=== PATIENT | female | born 1980 | race Caucasian/White ===

== ENCOUNTER 2021-07-05 16:53 | Inpatient (IN) | payer MEDICAID, OTHER ==
[~2021-07-05] VITALS: Ht 160 cm; Wt 37.0 kg
[2021-07-05] MEDS ORDERED: SODIUM CHLORIDE 0.9% 1,000 ML IV ONE (20:45)
[2021-07-05] MEDS ORDERED: MIDAZOLAM HCL 2MG/2ML 2ml VIAL (1mg/ml) IV ONE (20:45)
[2021-07-05] MEDS ORDERED: ONDANSETRON HCL 4 MG/2 ML VIAL IV ONE (21:00)
[2021-07-05] MEDS ORDERED: SODIUM CHLORIDE 0.9% 1,000 ML IVB ONE (21:00)
[2021-07-05] MEDS ORDERED: IOHEXOL 300 MG/ML 100ML BOTTLE IJ ONE (21:41)
[2021-07-05] MEDS ORDERED: LORazepam 2MG/ML-1ML VIAL IV ONE (22:00)
[2021-07-06 00:31] LABS: Basophils # (auto) 0 10 ^3/uL (0-0.2); Eosinophils # (auto) 0.1 10 ^3/uL (0-0.8); Lymphocytes # (auto) 1.7 10 ^3/uL (0.4-5.4); Monocytes # (auto) 0.2 10 ^3/uL (0-1.3); Nucleated Red Blood Cells % 0.1 %; Red Cell Distribution Width 14.7 % (11.8-14.3); White Blood Cell 3.1 10^3/uL (4.4-10.8)
[2021-07-06 00:33] LABS: Hematocrit 37.1 % (36.0-46.0); Hemoglobin 12.7 g/dL (12.2-16.2); Lymphocytes % (auto) 53.4 % (10.0-50.0); Mean Corpuscular Hemoglobin 35.1 pg (28.0-32.0); Mean Corpuscular Hgb Conc. 34.3 g/dL (32.0-36.0); Mean Corpuscular Volume 102.3 fL (80.0-100.0); Monocytes % (auto) 6.7 % (0.0-12.0); Neutrophils # (auto) 1.2 10 ^3/uL (1.6-8.6); Neutrophils % (auto) 36.9 % (37.0-80.0); Red Blood Cells 3.63 10^6/uL (4.0-5.20)
[2021-07-06] MEDS ORDERED: SODIUM CHLORIDE 0.9% 1,000 ML IV ONE (01:25)
[2021-07-06] MEDS ORDERED: HYDROCORTISONE SOD SUCC 100 MG/2ML INJ VIAL IV ONE (01:25)
[2021-07-06 01:30] LABS: Albumin 2.8 g/dL (3.4-5.0); BUN/Creatinine Ratio 20.8; Calcium 8.1 mg/dL (8.5-10.1); Potassium 3.4 mmol/L (3.5-5.1)
[2021-07-06 01:33] LABS: Bilirubin, Total 0.7 mg/dL (0.2-1.0); Total Protein 5.5 g/dL (6.4-8.2)
[2021-07-06] MEDS ORDERED: ONDANSETRON HCL 4 MG/2 ML VIAL IV ONE (03:30)
[2021-07-06] MEDS ORDERED: POTASSIUM CHL 20MEQ/50ML 50 ML IV ONE (06:00)
[2021-07-06] MEDS ORDERED: LORazepam 2MG/ML-1ML VIAL IV PRN (06:00)
[2021-07-06] MEDS ORDERED: D5W/SOD CHL 0.45% 1,000 ML IV SCH (06:00)
[2021-07-06 07:38] LABS: Urine Bacteria NONE SEEN /hpf (None Seen); Urine Blood Negative /uL (Negative); Urine Specific Gravity 1.033 (1.001-1.035); Urine WBC 2 /hpf (0 - 5)
[2021-07-06] MEDS: PANTOPRAZOLE 40 MG/10 ML VIAL INJ IV SCH (09:07)
[2021-07-06] MEDS ORDERED: HALOPERIDOL LACTATE 5 MG/ML INJ VIAL IM ONE (10:45)
[2021-07-06 13:37] VITALS: BP 70/41
[2021-07-06 17:00] VITALS: BP 79/54
[2021-07-06] MEDS: ONDANSETRON HCL 4 MG/2 ML VIAL IV PRN ×2 (18:16→22:19)
[2021-07-06] MEDS ORDERED: SODIUM CHLORIDE 0.9% 250 ML IV ONE (19:00)
[2021-07-06 19:41] LABS: INR 1.07 (0.9-1.15)
[2021-07-06 22:00] VITALS: BP 106/61
[2021-07-07] MEDS: ONDANSETRON HCL 4 MG/2 ML VIAL IV PRN ×2 (02:27→21:31)
[2021-07-07 04:42] VITALS: BP 74/66
[2021-07-07 04:45] VITALS: BP 79/50
[2021-07-07 09:00] VITALS: BP 99/57
[2021-07-07] MEDS: PANTOPRAZOLE 40 MG/10 ML VIAL INJ IV SCH (10:00)
[2021-07-07] MEDS: HALOPERIDOL LACTATE 5 MG/ML INJ VIAL IM PRN (10:41)
[2021-07-07] MEDS: D5W/SOD CHLO 0.9% 1,000 ML IV SCH ×2 (10:45→17:25)
[2021-07-07 13:40] LABS: Basophils # (auto) 0.1 10 ^3/uL (0-0.2); Eosinophils # (auto) 0 10 ^3/uL (0-0.8); Lymphocytes # (auto) 0.9 10 ^3/uL (0.4-5.4); Lymphocytes % (auto) 27.8 % (10.0-50.0); Red Blood Cells 4.03 10^6/uL (4.0-5.20); Red Cell Distribution Width 14.4 % (11.8-14.3)
[2021-07-07 13:41] LABS: Hematocrit 40.8 % (36.0-46.0); Hemoglobin 13.9 g/dL (12.2-16.2); Mean Corpuscular Hemoglobin 34.5 pg (28.0-32.0); Mean Corpuscular Hgb Conc. 34.1 g/dL (32.0-36.0); Mean Corpuscular Volume 101.3 fL (80.0-100.0); Monocytes # (auto) 0.2 10 ^3/uL (0-1.3); Monocytes % (auto) 6.2 % (0.0-12.0); White Blood Cell 3.2 10^3/uL (4.4-10.8)
[2021-07-07 14:06] LABS: BUN/Creatinine Ratio 12.7; Calcium 8.4 mg/dL (8.5-10.1); Potassium 3.8 mmol/L (3.5-5.1)
[2021-07-07] MEDS ORDERED: LORazepam 2MG/ML-1ML VIAL IM ONE (15:45)
[2021-07-07 22:00] VITALS: BP 87/53
[2021-07-08] MEDS: D5W/SOD CHLO 0.9% 1,000 ML IV SCH ×4 (00:05→21:02)
[2021-07-08] MEDS: ONDANSETRON HCL 4 MG/2 ML VIAL IV PRN ×4 (03:13→18:59)
[2021-07-08 05:00] VITALS: BP 83/39
[2021-07-08 09:00] VITALS: BP 83/56
[2021-07-08] MEDS: PANTOPRAZOLE 40 MG/10 ML VIAL INJ IV SCH (10:23)
[2021-07-08 13:00] VITALS: BP 108/47
[2021-07-08 17:00] VITALS: BP 93/50
[2021-07-08 22:00] VITALS: BP 94/50
[2021-07-09] MEDS: D5W/SOD CHLO 0.9% 1,000 ML IV SCH ×2 (03:47→11:51)
[2021-07-09] MEDS: ONDANSETRON HCL 4 MG/2 ML VIAL IV PRN ×2 (04:36→16:59)
[2021-07-09 05:00] VITALS: BP 85/50
[2021-07-09] MEDS: MIDODRINE HCL 10 MG TAB PO SCH ×3 (06:00→18:00)
[2021-07-09 08:00] VITALS: BP 87/53
[2021-07-09 09:00] VITALS: BP 87/53
[2021-07-09] MEDS: PANTOPRAZOLE 40 MG/10 ML VIAL INJ IV SCH (09:52)
[2021-07-09] MEDS ORDERED: HYDROcodone-ACET 5/325MG TAB PO PRN (12:00)
[2021-07-09 13:00] VITALS: BP 90/56
[2021-07-09 17:00] VITALS: BP 111/77
[2021-07-09 20:00] VITALS: BP 84/47
[2021-07-10 04:58] VITALS: BP 96/59
[2021-07-10 07:00] LABS: Eosinophils # (auto) 0.1 10 ^3/uL (0-0.8); Lymphocytes # (auto) 1.2 10 ^3/uL (0.4-5.4); Mean Corpuscular Hemoglobin 34.2 pg (28.0-32.0); Monocytes # (auto) 0.3 10 ^3/uL (0-1.3); Nucleated Red Blood Cells % 0.2 %
[2021-07-10 07:02] LABS: Basophils # (auto) 0 10 ^3/uL (0-0.2); Basophils % (auto) 1.4 % (0.0-2.0); Eosinophils % (auto) 2.7 % (0.0-7.0); Hematocrit 41.7 % (36.0-46.0); Lymphocytes % (auto) 44.9 % (10.0-50.0); Mean Corpuscular Hgb Conc. 33.6 g/dL (32.0-36.0); Monocytes % (auto) 10.4 % (0.0-12.0); Neutrophils # (auto) 1.1 10 ^3/uL (1.6-8.6); Neutrophils % (auto) 40.6 % (37.0-80.0); Red Blood Cells 4.09 10^6/uL (4.0-5.20); Red Cell Distribution Width 14.4 % (11.8-14.3); White Blood Cell 2.6 10^3/uL (4.4-10.8)
[2021-07-10 07:14] LABS: INR 1.03 (0.9-1.15); Partial Thromboplastin Time 26.8 sec (23.6-33.0)
[2021-07-10 07:15] LABS: BUN/Creatinine Ratio 11.1; Calcium 9.1 mg/dL (8.5-10.1); Potassium 3.6 mmol/L (3.5-5.1)
[2021-07-10 08:00] VITALS: BP 125/81
[2021-07-10 09:00] VITALS: BP 125/81
[2021-07-10] MEDS ORDERED: LIDOCAINE VISCOUS 2% 15ML UD ONE (09:55)
[2021-07-10] MEDS ORDERED: SODIUM CHLORIDE LOCK 10 ML ONE (09:55)
[2021-07-10] MEDS ORDERED: MIDAZOLAM HCL 5 MG/ML-1ML VIAL ONE (09:55)
[2021-07-10] MEDS ORDERED: diphenhdrAMINE HCL 50 MG/1 ML VL ONE (09:55)
[2021-07-10] MEDS ORDERED: fentaNYL CITRATE 100 MCG/2 ML VL ONE ×2 (09:56→12:42)
[2021-07-10] MEDS: PANTOPRAZOLE 40 MG/10 ML VIAL INJ IV SCH (10:54)
[2021-07-10] MEDS: MIDODRINE HCL 10 MG TAB PO SCH ×2 (12:15→17:42)
[2021-07-10] MEDS: D5W/SOD CHLO 0.9% 1,000 ML IV SCH ×2 (12:15→17:42)
[2021-07-10] MEDS ORDERED: MIDAZOLAM HCL 2MG/2ML 2ml VIAL (1mg/ml) ONE (12:43)
[2021-07-10 13:00] VITALS: BP 124/92
[2021-07-10 17:00] VITALS: BP 92/64
[2021-07-10] MEDS: ONDANSETRON HCL 4 MG/2 ML VIAL IV PRN ×2 (17:56→22:46)
[2021-07-10] MEDS: HALOPERIDOL LACTATE 5 MG/ML INJ VIAL IM PRN (17:59)
[2021-07-11] MEDS: D5W/SOD CHLO 0.9% 1,000 ML IV SCH ×3 (01:25→14:45)
[2021-07-11] MEDS: MIDODRINE HCL 10 MG TAB PO SCH ×3 (05:39→18:00)
[2021-07-11 08:30] VITALS: BP 99/54
[2021-07-11 09:00] VITALS: BP 99/54
[2021-07-11] MEDS: PANTOPRAZOLE 40 MG/10 ML VIAL INJ IV SCH (10:29)
[2021-07-11 13:00] VITALS: BP 94/61
[2021-07-11 16:59] VITALS: BP 100/65
[2021-07-11 17:47] VITALS: BP 100/65
[2021-07-11] MEDS: HALOPERIDOL LACTATE 5 MG/ML INJ VIAL IM PRN (18:18)
== END 2021-07-11 18:30 | disposition home or self-care (01) | DRG 252 ==
LOC: ER 16:53 → EDBD 16:53 → OVERFLOW 07-06 06:03 → CENTRAL 07-06 13:10
PROVIDERS: ADMIT Nurse Practitioner; ATTEND Family Medicine
PROC: 0DP68UZ Removal of Feeding Device from Stomach, Via Natural or Artificial Opening Endoscopic (ICD-10-PCS; 2021-07-10)
PROC: 0DH63UZ Insertion of Feeding Device into Stomach, Percutaneous Approach (ICD-10-PCS; principal; 2021-07-10 12:42)
DX: K94.23 Gastrostomy malfunction (principal); E43 Unspecified severe protein-calorie malnutrition; E87.6 Hypokalemia; Q90.9 Down syndrome, unspecified; K59.00 Constipation, unspecified; K29.70 Gastritis, unspecified, without bleeding; Z20.822 Contact with and (suspected) exposure to COVID-19; Y83.3 Surgical operation with formation of external stoma as the cause of abnormal reaction of the patient, or of later complication, without mention of misadventure at the time of the procedure; Z68.1 Body mass index [BMI] 19.9 or less, adult; Y92.89 Other specified places as the place of occurrence of the external cause
CPT/HCPCS: 36415; 71045; 74177; 80048; 80053; 81001; 83605; 83690; 84702; 85025; 85610; 85730; 86850; 86900; 86901; 87426; 93005; 96361; 96374; 96375; C9113; G0378; J2250; J2405; J7042

== ENCOUNTER 2021-08-01 08:46 | Inpatient (IN) | payer MEDICAID ==
[~2021-08-01] VITALS: Ht 152.4 cm; Wt 38.1 kg
[2021-08-01] MEDS ORDERED: diphenhdrAMINE HCL 50 MG/1 ML VL IV ONE ×2 (10:00→14:45)
[2021-08-01] MEDS ORDERED: LORazepam 2MG/ML-1ML VIAL IV ONE ×2 (10:00→14:45)
[2021-08-01 10:38] LABS: Basophils # (auto) 0 10 ^3/uL (0-0.2); Eosinophils # (auto) 0.1 10 ^3/uL (0-0.8); Eosinophils % (auto) 1.6 % (0.0-7.0); Lymphocytes # (auto) 1.3 10 ^3/uL (0.4-5.4); Mean Corpuscular Hemoglobin 34.1 pg (28.0-32.0); Monocytes # (auto) 0.2 10 ^3/uL (0-1.3); White Blood Cell 4.3 10^3/uL (4.4-10.8)
[2021-08-01 10:40] LABS: Basophils % (auto) 0.6 % (0.0-2.0); Hematocrit 36.8 % (36.0-46.0); Hemoglobin 12.4 g/dL (12.2-16.2); Lymphocytes % (auto) 31.3 % (10.0-50.0); Mean Corpuscular Hgb Conc. 33.7 g/dL (32.0-36.0); Mean Corpuscular Volume 101.2 fL (80.0-100.0); Monocytes % (auto) 4.6 % (0.0-12.0); Neutrophils # (auto) 2.6 10 ^3/uL (1.6-8.6); Neutrophils % (auto) 61.9 % (37.0-80.0); Nucleated Red Blood Cells % 0.1 %; Red Blood Cells 3.64 10^6/uL (4.0-5.20); Red Cell Distribution Width 14.3 % (11.8-14.3)
[2021-08-01 10:53] LABS: Potassium 3.7 mmol/L (3.5-5.1)
[2021-08-01 11:08] LABS: Albumin 3.4 g/dL (3.4-5.0); BUN/Creatinine Ratio 21.4; Bilirubin, Total 0.3 mg/dL (0.2-1.0); Calcium 9.2 mg/dL (8.5-10.1); Total Protein 6.9 g/dL (6.4-8.2)
[2021-08-01 11:28] LABS: INR 0.99 (0.9-1.15); Partial Thromboplastin Time 29.9 sec (23.6-33.0)
[2021-08-01] MEDS ORDERED: NITROGLYCERIN 0.4 MG SL TAB SL PRN ×2 (13:15→14:00)
[2021-08-01] MEDS ORDERED: MORPHINE SULFATE INJECTION 2 MG/ML SYRG IV PRN ×3 (13:15→14:00)
[2021-08-01] MEDS ORDERED: DOCUSATE SOD 100 MG CAP PO PRN (14:00)
[2021-08-01] MEDS ORDERED: ALUM & MAG HYDROX-SIMETH LIQ(MAALOX) 30 ML PO PRN (14:00)
[2021-08-01] MEDS ORDERED: TEMAZEPAM 15 MG CAP PO PRN (14:00)
[2021-08-01] MEDS ORDERED: metroNIDAZOLE 500MG/100ML 100 ML IV ONE (14:00)
[2021-08-01] MEDS ORDERED: HYDROcodone-ACET 5/325MG TAB PO PRN (14:00)
[2021-08-01] MEDS ORDERED: ACETAMINOPHEN 325 MG TAB PO PRN (14:00)
[2021-08-01] MEDS ORDERED: cefTRIAXone 1GM/50ML D5W 50 ML IV ONE (14:00)
[2021-08-01] MEDS ORDERED: PANTOPRAZOLE 40 MG/10 ML VIAL INJ IV ONE (14:00)
[2021-08-01 14:26] LABS: % Iron Saturation 21.9 % (15-50)
[2021-08-01 14:40] LABS: Cholesterol 153 mg/dL (< 200); Triglycerides 67 mg/dL (< 150)
[2021-08-01 14:43] LABS: HDL Cholesterol 55 mg/dL (40-59); LDL Cholesterol 79 mg/dL (< 100)
[2021-08-01 14:44] LABS: Folate (Folic Acid) 9.42 ng/mL (5.38-24)
[2021-08-01] MEDS: metroNIDAZOLE 500MG/100ML 100 ML IV SCH ×2 (14:48→21:38)
[2021-08-01] MEDS: METOCLOPRAMIDE HCL 5MG/ml INJ 2ml VIAL IV PRN (17:56)
[2021-08-01] MEDS: D5W/SOD CHLO 0.9% 1,000 ML IV SCH (18:01)
[2021-08-01] MEDS: NYSTATIN TOPICAL POWDER 15GM TOP SCH (21:50)
[2021-08-02] MEDS: D5W/SOD CHLO 0.9% 1,000 ML IV SCH ×2 (03:20→22:26)
[2021-08-02] MEDS: metroNIDAZOLE 500MG/100ML 100 ML IV SCH (05:56)
[2021-08-02] MEDS: METOCLOPRAMIDE HCL 5MG/ml INJ 2ml VIAL IV PRN (06:50)
[2021-08-02 07:38] LABS: Basophils # (auto) 0.1 10 ^3/uL (0-0.2); Basophils % (auto) 3.2 % (0.0-2.0); Eosinophils # (auto) 0.1 10 ^3/uL (0-0.8); Eosinophils % (auto) 3.3 % (0.0-7.0); Hematocrit 36.4 % (36.0-46.0); Hemoglobin 12.2 g/dL (12.2-16.2); Lymphocytes # (auto) 1.1 10 ^3/uL (0.4-5.4); Lymphocytes % (auto) 47.4 % (10.0-50.0); Mean Corpuscular Hemoglobin 34.2 pg (28.0-32.0); Mean Corpuscular Hgb Conc. 33.5 g/dL (32.0-36.0); Mean Corpuscular Volume 102.3 fL (80.0-100.0); Monocytes # (auto) 0.2 10 ^3/uL (0-1.3); Neutrophils # (auto) 0.9 10 ^3/uL (1.6-8.6); Neutrophils % (auto) 39.1 % (37.0-80.0); Nucleated Red Blood Cells % 0.1 %; Red Blood Cells 3.55 10^6/uL (4.0-5.20); Red Cell Distribution Width 14.5 % (11.8-14.3); White Blood Cell 2.4 10^3/uL (4.4-10.8)
[2021-08-02 07:41] LABS: INR 1.07 (0.9-1.15); Partial Thromboplastin Time 30.3 sec (23.6-33.0)
[2021-08-02 07:47] LABS: Potassium 3.8 mmol/L (3.5-5.1)
[2021-08-02 08:11] LABS: Albumin 3.1 g/dL (3.4-5.0); Bilirubin, Total 0.6 mg/dL (0.2-1.0); Calcium 8.9 mg/dL (8.5-10.1); Magnesium 3.6 mg/dL (1.6-2.6); Phosphorus 3.5 mg/dL (2.5-4.90); Total Protein 6.5 g/dL (6.4-8.2); Uric Acid 3.4 mg/dL (2.6-6.0)
[2021-08-02] MEDS: ENOXAPARIN SOD 30 MG/0.3 ML SYRINGE SC SCH (08:13)
[2021-08-02] MEDS: PANTOPRAZOLE 40 MG/10 ML VIAL INJ IV SCH (08:13)
[2021-08-02] MEDS: cefTRIAXone 1GM/50ML D5W 50 ML IV SCH (08:13)
[2021-08-02] MEDS: NYSTATIN TOPICAL POWDER 15GM TOP SCH ×2 (10:00→22:00)
[2021-08-02 13:00] VITALS: BP 102/73
[2021-08-02 17:00] VITALS: BP 103/69
[2021-08-02 20:00] VITALS: BP 113/77
[2021-08-03] MEDS: D5W/SOD CHLO 0.9% 1,000 ML IV SCH (06:00)
[2021-08-03 07:30] LABS: Urine Bacteria FEW /hpf (None Seen); Urine Blood Negative /uL (Negative); Urine Mucus FEW (None Seen); Urine Specific Gravity 1.011 (1.001-1.035); Urine WBC 3 /hpf (0 - 5)
[2021-08-03 07:36] LABS: Amphetamine Screen, Urine NEGATIVE (NEGATIVE); Barbiturate Scree,Urine NEGATIVE (NEGATIVE); Benzodiazephine Screen, Urine NEGATIVE (NEGATIVE); Cannabinoid Screen, Urine NEGATIVE (NEGATIVE); Cocaine Screen, Urine NEGATIVE (NEGATIVE); Opiate Scree,Urine NEGATIVE (NEGATIVE); Phencyclidine Screen, Urine NEGATIVE (NEGATIVE)
[2021-08-03 09:00] VITALS: BP 134/87
[2021-08-03] MEDS: cefTRIAXone 1GM/50ML D5W 50 ML IV SCH (09:30)
[2021-08-03] MEDS: PANTOPRAZOLE 40 MG/10 ML VIAL INJ IV SCH (10:00)
[2021-08-03] MEDS: NYSTATIN TOPICAL POWDER 15GM TOP SCH ×2 (10:00→22:00)
[2021-08-03] MEDS: ENOXAPARIN SOD 30 MG/0.3 ML SYRINGE SC SCH (10:00)
[2021-08-03 13:00] VITALS: BP 109/78
[2021-08-03] MEDS ORDERED: CLINIMIX PER PHARMACY 0 ML IV SCH (13:15)
[2021-08-03] MEDS: HALOPERIDOL LACTATE 5 MG/ML INJ VIAL IM PRN (14:26)
[2021-08-03 15:50] LABS: Albumin 3.4 g/dL (3.4-5.0); Magnesium 3.3 mg/dL (1.6-2.6); Potassium 3.9 mmol/L (3.5-5.1)
[2021-08-03 15:56] LABS: BUN/Creatinine Ratio 12.9; Bilirubin, Total 0.7 mg/dL (0.2-1.0); Phosphorus 3.1 mg/dL (2.5-4.90); Pre Albumin 16.3 mg/dL (20.0-40.0); Total Protein 6.7 g/dL (6.4-8.2)
[2021-08-03 17:36] VITALS: BP 99/69
[2021-08-03] MEDS ORDERED: ceFAZolin 1GM/50ML 50 ML IV ONE (19:30)
[2021-08-03] MEDS: AMINO ACID INFUSION IN D10W 1,000 ML IV SCH (23:56)
[2021-08-04] MEDS ORDERED: DEXTROSE (50%) 50ML SYRG IV SCH
[2021-08-04] MEDS: LORazepam 2MG/ML-1ML VIAL IV PRN ×2 (00:42→16:24)
[2021-08-04] MEDS: InsuLIN REG 1unit/0.01ml Soln (100units/ml) SC SCH ×4 (06:00→17:48)
[2021-08-04] MEDS: ACCU-CHEK COMFORT CURVE STRIP VI SCH ×4 (06:07→17:48)
[2021-08-04 06:21] VITALS: BP 98/63
[2021-08-04 07:30] LABS: Basophils # (auto) 0.1 10 ^3/uL (0-0.2); Basophils % (auto) 2.3 % (0.0-2.0); Eosinophils # (auto) 0 10 ^3/uL (0-0.8); Eosinophils % (auto) 1.2 % (0.0-7.0); Hemoglobin 11.9 g/dL (12.2-16.2); Lymphocytes # (auto) 1.5 10 ^3/uL (0.4-5.4); Mean Corpuscular Hemoglobin 34.3 pg (28.0-32.0); Monocytes # (auto) 0.2 10 ^3/uL (0-1.3); Nucleated Red Blood Cells % 0.1 %; Red Blood Cells 3.46 10^6/uL (4.0-5.20); Red Cell Distribution Width 14.6 % (11.8-14.3)
[2021-08-04 07:36] LABS: Hematocrit 35.2 % (36.0-46.0); Lymphocytes % (auto) 43.4 % (10.0-50.0); Mean Corpuscular Hgb Conc. 33.8 g/dL (32.0-36.0); Mean Corpuscular Volume 101.6 fL (80.0-100.0); Monocytes % (auto) 6.9 % (0.0-12.0); Neutrophils # (auto) 1.6 10 ^3/uL (1.6-8.6); Neutrophils % (auto) 46.2 % (37.0-80.0); White Blood Cell 3.4 10^3/uL (4.4-10.8)
[2021-08-04 07:38] LABS: INR 1.08 (0.9-1.15); Partial Thromboplastin Time 25.5 sec (23.6-33.0)
[2021-08-04 07:47] LABS: Potassium 3.5 mmol/L (3.5-5.1)
[2021-08-04 07:53] LABS: Albumin 3.1 g/dL (3.4-5.0); BUN/Creatinine Ratio 17.2; Bilirubin, Total 0.7 mg/dL (0.2-1.0); Calcium 9.1 mg/dL (8.5-10.1); Magnesium 3.6 mg/dL (1.6-2.6); Phosphorus 3.3 mg/dL (2.5-4.90); Total Protein 6.2 g/dL (6.4-8.2)
[2021-08-04 10:00] VITALS: BP 97/79
[2021-08-04] MEDS: ENOXAPARIN SOD 30 MG/0.3 ML SYRINGE SC SCH (10:00)
[2021-08-04] MEDS: PANTOPRAZOLE 40 MG/10 ML VIAL INJ IV SCH (10:04)
[2021-08-04] MEDS: cefTRIAXone 1GM/50ML D5W 50 ML IV SCH (10:04)
[2021-08-04] MEDS: NYSTATIN TOPICAL POWDER 15GM TOP SCH ×2 (10:05→22:00)
[2021-08-04 12:30] VITALS: BP 95/57
[2021-08-04] MEDS ORDERED: ceFAZolin 1GM/50ML 50 ML IV ONE (17:30)
[2021-08-04] MEDS: D5W/SOD CHLO 0.9% 1,000 ML IV SCH ×2 (20:00→21:43)
[2021-08-04] MEDS: HALOPERIDOL LACTATE 5 MG/ML INJ VIAL IM PRN (21:14)
[2021-08-04 22:00] VITALS: BP 99/69
[2021-08-05] MEDS: AMINO ACID INFUSION IN D10W 1,000 ML IV SCH ×2 (00:03→20:48)
[2021-08-05 05:00] VITALS: BP 100/58
[2021-08-05] MEDS: InsuLIN REG 1unit/0.01ml Soln (100units/ml) SC SCH ×4 (06:00→18:00)
[2021-08-05] MEDS: ACCU-CHEK COMFORT CURVE STRIP VI SCH ×4 (06:05→18:00)
[2021-08-05 09:00] VITALS: BP 103/66
[2021-08-05] MEDS: ENOXAPARIN SOD 30 MG/0.3 ML SYRINGE SC SCH (10:00)
[2021-08-05] MEDS: NYSTATIN TOPICAL POWDER 15GM TOP SCH ×2 (10:00→22:00)
[2021-08-05] MEDS: PANTOPRAZOLE 40 MG/10 ML VIAL INJ IV SCH (10:00)
[2021-08-05] MEDS: HALOPERIDOL LACTATE 5 MG/ML INJ VIAL IM PRN (11:30)
[2021-08-05] MEDS: cefTRIAXone 1GM/50ML D5W 50 ML IV SCH (12:05)
[2021-08-05] MEDS: LORazepam 2MG/ML-1ML VIAL IV PRN ×2 (12:07→23:41)
[2021-08-05] MEDS ORDERED: ceFAZolin 1GM/50ML 50 ML IV ONE (12:30)
[2021-08-05 12:41] LABS: Potassium 3.7 mmol/L (3.5-5.1)
[2021-08-05 12:42] LABS: Albumin 3.4 g/dL (3.4-5.0); Calcium 8.8 mg/dL (8.5-10.1)
[2021-08-05 12:45] LABS: BUN/Creatinine Ratio 23.9; Bilirubin, Total 0.4 mg/dL (0.2-1.0); Phosphorus 2.6 mg/dL (2.5-4.90); Total Protein 7.1 g/dL (6.4-8.2)
[2021-08-05 13:00] VITALS: BP 102/66
[2021-08-05] MEDS ORDERED: fentaNYL CITRATE 100 MCG/2 ML VL ONE (14:29)
[2021-08-05] MEDS ORDERED: ONDANSETRON HCL 4 MG/2 ML VIAL ONE (14:32)
[2021-08-05] MEDS ORDERED: PROPOFOL 10 MG/ML 20 ML IV ONE (14:50)
[2021-08-05] MEDS ORDERED: POVIDONE IODINE 10 % TOPICAL OINT 30GM TOP ONE (14:53)
[2021-08-05] MEDS ORDERED: MORPHINE SULFATE 4 MG/ML SYR/VIAL IV PRN (15:15)
[2021-08-05] MEDS ORDERED: ONDANSETRON HCL 4 MG/2 ML VIAL IV PRN (15:15)
[2021-08-05] MEDS ORDERED: POTASSIUM PHOSPHATE 22 MEQ in SODIUM CHL 0.9% 100 ML IV ONE (16:00)
[2021-08-05 17:00] VITALS: BP 94/50
[2021-08-05 20:00] VITALS: BP 100/60
[2021-08-05] MEDS: D5W/SOD CHLO 0.9% 1,000 ML IV SCH (20:00)
[2021-08-05] MEDS: METOCLOPRAMIDE HCL 5MG/ml INJ 2ml VIAL IV SCH (22:00)
[2021-08-06] MEDS: METOCLOPRAMIDE HCL 5MG/ml INJ 2ml VIAL IV SCH ×3 (06:00→22:00)
[2021-08-06] MEDS: ACCU-CHEK COMFORT CURVE STRIP VI SCH ×3 (06:00→17:32)
[2021-08-06] MEDS: InsuLIN REG 1unit/0.01ml Soln (100units/ml) SC SCH ×4 (06:00→17:32)
[2021-08-06 09:00] VITALS: BP 107/60
[2021-08-06] MEDS: cefTRIAXone 1GM/50ML D5W 50 ML IV SCH (09:14)
[2021-08-06] MEDS: ONDANSETRON HCL 4 MG/2 ML VIAL IV PRN ×2 (09:18→20:14)
[2021-08-06 09:34] LABS: Potassium 4.1 mmol/L (3.5-5.1)
[2021-08-06] MEDS: ENOXAPARIN SOD 30 MG/0.3 ML SYRINGE SC SCH (09:41)
[2021-08-06] MEDS: NYSTATIN TOPICAL POWDER 15GM TOP SCH ×2 (09:41→22:00)
[2021-08-06] MEDS: PANTOPRAZOLE 40 MG/10 ML VIAL INJ IV SCH (09:41)
[2021-08-06 09:45] LABS: Albumin 2.8 g/dL (3.4-5.0); BUN/Creatinine Ratio 35.7; Bilirubin, Total 0.4 mg/dL (0.2-1.0); Calcium 8.4 mg/dL (8.5-10.1); Total Protein 6.1 g/dL (6.4-8.2)
[2021-08-06] MEDS ORDERED: BISACODYL 10 MG RECT SUPP PR ONE (15:15)
[2021-08-06] MEDS: LORazepam 2MG/ML-1ML VIAL IV PRN ×2 (15:22→21:25)
[2021-08-06 17:00] VITALS: BP 94/64
[2021-08-06] MEDS: Glucerna Carbsteady SHAKE Stawberry 8oz GT SCH ×2 (18:32→22:00)
[2021-08-06 20:00] VITALS: BP 106/60
[2021-08-06 22:00] VITALS: BP 98/57
[2021-08-06] MEDS: D5W/SOD CHLO 0.9% 1,000 ML IV SCH (23:15)
[2021-08-07] MEDS: D5W/SOD CHLO 0.9% 1,000 ML IV SCH (00:58)
[2021-08-07 05:00] VITALS: BP 100/58
[2021-08-07] MEDS: InsuLIN REG 1unit/0.01ml Soln (100units/ml) SC SCH ×3 (06:00→13:12)
[2021-08-07] MEDS: Glucerna Carbsteady SHAKE Stawberry 8oz GT SCH (06:00)
[2021-08-07] MEDS: ACCU-CHEK COMFORT CURVE STRIP VI SCH ×2 (06:00)
[2021-08-07] MEDS: METOCLOPRAMIDE HCL 5MG/ml INJ 2ml VIAL IV SCH (06:00)
[2021-08-07 09:15] VITALS: BP 136/82
[2021-08-07] MEDS ORDERED: METO-281 PO (09:41)
[2021-08-07] MEDS: PANTOPRAZOLE 40 MG/10 ML VIAL INJ IV SCH (11:02)
[2021-08-07] MEDS: cefTRIAXone 1GM/50ML D5W 50 ML IV SCH (11:02)
[2021-08-07] MEDS: ENOXAPARIN SOD 30 MG/0.3 ML SYRINGE SC SCH (11:03)
[2021-08-07] MEDS: NYSTATIN TOPICAL POWDER 15GM TOP SCH (11:16)
[2021-08-07 13:00] VITALS: BP 102/56
[2021-08-07 16:13] VITALS: BP 109/59
[2021-08-07 16:16] VITALS: BP 109/59
== END 2021-08-07 19:10 | disposition home or self-care (01) | DRG 813 ==
LOC: EDBD 08:46 → ER 08:46 → TELE 13:59 → CENTRAL 15:58 → EAST 17:25
PROVIDERS: ADMIT Hospitalist; ATTEND Internal Medicine
PROC: 0DH63UZ Insertion of Feeding Device into Stomach, Percutaneous Approach (ICD-10-PCS; 2021-08-05)
PROC: 0DP68UZ Removal of Feeding Device from Stomach, Via Natural or Artificial Opening Endoscopic (ICD-10-PCS; principal; 2021-08-05 14:29)
DX: T85.528A Displacement of other gastrointestinal prosthetic devices, implants and grafts, initial encounter (principal); E44.0 Moderate protein-calorie malnutrition; K94.22 Gastrostomy infection; L03.311 Cellulitis of abdominal wall; D53.9 Nutritional anemia, unspecified; K31.84 Gastroparesis; Y83.3 Surgical operation with formation of external stoma as the cause of abnormal reaction of the patient, or of later complication, without mention of misadventure at the time of the procedure; E86.0 Dehydration; R62.7 Adult failure to thrive; Z20.822 Contact with and (suspected) exposure to COVID-19; Z68.23 Body mass index [BMI] 23.0-23.9, adult; Q90.9 Down syndrome, unspecified; Y92.89 Other specified places as the place of occurrence of the external cause
CPT/HCPCS: 36415; 80053; 80061; 80307; 81001; 82040; 82607; 82746; 82962; 83036; 83540; 83550; 83735; 83880; 84100; 84443; 84478; 84484; 84550; 84702; 85025; 85379; 85610; 85730; 86850; 86900; 86901; 87040; 87086; 87426; 96374; 96375; C9113; G0378; J0690; J0696; J2405; J2704; J3490; J7042

== ENCOUNTER 2021-08-17 12:14 | Inpatient (IN) | payer MEDICAID ==
[~2021-08-17] VITALS: Ht 152.4 cm; Wt 28.2 kg
[~2021-08-17 12:14] MED LIST: METO-281 PO
[2021-08-17] MEDS ORDERED: LIDOCAINE HCL 2% TOP JELLY 5ML TOP ONE (13:30)
[2021-08-17] MEDS ORDERED: MORPHINE SULFATE INJECTION 2 MG/ML SYRG IV ONE (16:30)
[2021-08-17] MEDS ORDERED: ONDANSETRON HCL 4 MG/2 ML VIAL IV ONE (16:30)
[2021-08-17] MEDS ORDERED: diphenhdrAMINE HCL 50 MG/1 ML VL ONE (16:57)
[2021-08-17] MEDS ORDERED: diphenhdrAMINE HCL 50 MG/1 ML VL IV PRN (17:00)
[2021-08-17] MEDS ORDERED: diphenhdrAMINE HCL 50 MG/1 ML VL IV ONE (17:15)
[2021-08-17] MEDS ORDERED: SODIUM CHLORIDE 0.9% 500 ML IV ONE (17:15)
[2021-08-17] MEDS ORDERED: ACETAMINOPHEN 325 MG TAB PO PRN (21:00)
[2021-08-17] MEDS: SODIUM CHLORIDE 0.9% 1,000 ML IV SCH (21:00)
[2021-08-17] MEDS ORDERED: ONDANSETRON HCL 4 MG/2 ML VIAL IV PRN (21:00)
[2021-08-17 21:24] LABS: Eosinophils # (auto) 0.1 10 ^3/uL (0-0.8); Hemoglobin 11.2 g/dL (12.2-16.2); Mean Corpuscular Hemoglobin 35.2 pg (28.0-32.0); Monocytes # (auto) 0.3 10 ^3/uL (0-1.3); Red Blood Cells 3.18 10^6/uL (4.0-5.20); White Blood Cell 3.8 10^3/uL (4.4-10.8)
[2021-08-17 21:27] LABS: Basophils # (auto) 0.1 10 ^3/uL (0-0.2); Basophils % (auto) 2.7 % (0.0-2.0); Lymphocytes # (auto) 1.5 10 ^3/uL (0.4-5.4); Lymphocytes % (auto) 40.4 % (10.0-50.0); Mean Corpuscular Hgb Conc. 34.9 g/dL (32.0-36.0); Mean Corpuscular Volume 100.9 fL (80.0-100.0); Monocytes % (auto) 8.2 % (0.0-12.0); Neutrophils # (auto) 1.8 10 ^3/uL (1.6-8.6); Neutrophils % (auto) 46.7 % (37.0-80.0); Nucleated Red Blood Cells % 0.2 %
[2021-08-17 21:36] LABS: INR 1.02 (0.9-1.15)
[2021-08-17 21:44] LABS: BUN/Creatinine Ratio 14.3; Calcium 8.8 mg/dL (8.5-10.1); Potassium 3.8 mmol/L (3.5-5.1)
[2021-08-17 21:47] LABS: Bilirubin, Total 0.7 mg/dL (0.2-1.0); Total Protein 6.5 g/dL (6.4-8.2)
[2021-08-17 23:45] VITALS: BP 95/55
[2021-08-18 05:08] VITALS: BP 87/48
[2021-08-18] MEDS ORDERED: METOCLOPRAMIDE HCL 10 MG TAB PO SCH (06:00)
[2021-08-18] MEDS: SODIUM CHLORIDE 0.9% 1,000 ML IV SCH ×3 (06:20→23:39)
[2021-08-18 06:30] LABS: Potassium 3.7 mmol/L (3.5-5.1)
[2021-08-18 06:31] LABS: Basophils # (auto) 0.1 10 ^3/uL (0-0.2); Eosinophils # (auto) 0.1 10 ^3/uL (0-0.8); Hemoglobin 10.6 g/dL (12.2-16.2); Lymphocytes # (auto) 1.3 10 ^3/uL (0.4-5.4); Nucleated Red Blood Cells % 0.4 %
[2021-08-18 06:33] LABS: Albumin 2.5 g/dL (3.4-5.0); BUN/Creatinine Ratio 18.8; Calcium 8.2 mg/dL (8.5-10.1)
[2021-08-18 06:34] LABS: Basophils % (auto) 2.5 % (0.0-2.0); Eosinophils % (auto) 3.4 % (0.0-7.0); Hematocrit 31.5 % (36.0-46.0); Lymphocytes % (auto) 42.5 % (10.0-50.0); Mean Corpuscular Hemoglobin 34.4 pg (28.0-32.0); Mean Corpuscular Hgb Conc. 33.6 g/dL (32.0-36.0); Mean Corpuscular Volume 102.1 fL (80.0-100.0); Monocytes # (auto) 0.3 10 ^3/uL (0-1.3); Monocytes % (auto) 8.4 % (0.0-12.0); Neutrophils # (auto) 1.3 10 ^3/uL (1.6-8.6); Neutrophils % (auto) 43.2 % (37.0-80.0); Red Blood Cells 3.09 10^6/uL (4.0-5.20); Red Cell Distribution Width 14.7 % (11.8-14.3); White Blood Cell 3.1 10^3/uL (4.4-10.8)
[2021-08-18 06:40] LABS: Bilirubin, Total 0.9 mg/dL (0.2-1.0); Total Protein 5.4 g/dL (6.4-8.2)
[2021-08-18 07:15] VITALS: BP 95/55
[2021-08-18] MEDS ORDERED: FAMOTIDINE 20 MG TAB PO SCH (10:00)
[2021-08-18] MEDS ORDERED: ENOXAPARIN SOD 40 MG/0.4 ML SYRINGE SC SCH (10:00)
[2021-08-18] MEDS: FAMOTIDINE (10MG/ML) 2ML VL IV SCH (10:14)
[2021-08-18] MEDS ORDERED: PROPOFOL 10 MG/ML 20 ML IV ONE (15:12)
[2021-08-18] MEDS ORDERED: ceFAZolin 1GM VL ONE (17:48)
[2021-08-18] MEDS ORDERED: IOHEXOL 300 MG/ML 100ML BOTTLE IJ ONE (18:13)
[2021-08-18] MEDS ORDERED: GASTROGRAFIN 30 ML SOL ONE (18:14)
[2021-08-18] MEDS: MORPHINE SULFATE 4 MG/ML SYR/VIAL IV PRN ×2 (19:06→23:38)
[2021-08-18] MEDS: Ensure Enlive Vanilla 8oz Bottle PO SCH ×2 (19:07→22:00)
[2021-08-18 19:20] VITALS: BP 96/48
[2021-08-18 20:00] VITALS: BP 123/77
[2021-08-18 22:00] VITALS: BP 104/63
[2021-08-18] MEDS: METOCLOPRAMIDE HCL 5MG/ml INJ 2ml VIAL IV SCH (23:39)
[2021-08-19] MEDS: METOCLOPRAMIDE HCL 5MG/ml INJ 2ml VIAL IV SCH ×3 (06:54→21:17)
[2021-08-19] MEDS: SODIUM CHLORIDE 0.9% 1,000 ML IV SCH (06:55)
[2021-08-19] MEDS: Ensure Enlive Vanilla 8oz Bottle PO SCH ×4 (08:00→22:00)
[2021-08-19 09:00] VITALS: BP 102/63
[2021-08-19] MEDS: ENOXAPARIN SOD 30 MG/0.3 ML SYRINGE SC SCH (11:05)
[2021-08-19] MEDS: MILK OF MAGNESIA 30ML SUSP PO SCH (11:05)
[2021-08-19] MEDS: FAMOTIDINE (10MG/ML) 2ML VL IV SCH (11:05)
[2021-08-19] MEDS: MORPHINE SULFATE 4 MG/ML SYR/VIAL IV PRN (11:07)
[2021-08-19 16:30] VITALS: BP 101/66
[2021-08-20] MEDS: METOCLOPRAMIDE HCL 5MG/ml INJ 2ml VIAL IV SCH ×3 (06:00→22:00)
[2021-08-20] MEDS: Ensure Enlive Vanilla 8oz Bottle PO SCH ×4 (08:00→22:00)
[2021-08-20] MEDS: MILK OF MAGNESIA 30ML SUSP PO SCH (08:07)
[2021-08-20 08:30] VITALS: BP 126/70
[2021-08-20] MEDS: FAMOTIDINE (10MG/ML) 2ML VL IV SCH (09:57)
[2021-08-20] MEDS: ENOXAPARIN SOD 30 MG/0.3 ML SYRINGE SC SCH (09:58)
[2021-08-20 12:30] VITALS: BP 105/42
[2021-08-20] MEDS: SODIUM CHLORIDE 0.9% 1,000 ML IV SCH ×2 (13:15→15:40)
[2021-08-20 22:00] VITALS: BP 94/56
[2021-08-21 05:00] VITALS: BP 130/93
[2021-08-21] MEDS: METOCLOPRAMIDE HCL 5MG/ml INJ 2ml VIAL IV SCH (05:29)
[2021-08-21 09:00] VITALS: BP 93/63
[2021-08-21] MEDS: MILK OF MAGNESIA 30ML SUSP PO SCH (09:30)
[2021-08-21] MEDS: FAMOTIDINE (10MG/ML) 2ML VL IV SCH (09:30)
[2021-08-21] MEDS: SODIUM CHLORIDE 0.9% 1,000 ML IV SCH ×2 (09:30)
[2021-08-21] MEDS: Ensure Enlive Vanilla 8oz Bottle PO SCH ×2 (11:09→13:04)
[2021-08-21] MEDS: ENOXAPARIN SOD 30 MG/0.3 ML SYRINGE SC SCH (11:27)
[2021-08-21 13:00] VITALS: BP 83/48
[2021-08-21 13:29] VITALS: BP 120/78
== END 2021-08-21 16:45 | DRG 813 ==
LOC: EDBD 12:14 → ER 12:19 → OVERFLOW 20:48 → CENTRAL 23:24
PROVIDERS: ADMIT Internal Medicine; ATTEND Family Medicine
PROC: 0D20XUZ Change Feeding Device in Upper Intestinal Tract, External Approach (ICD-10-PCS; principal; 2021-08-18 17:41)
DX: T85.528A Displacement of other gastrointestinal prosthetic devices, implants and grafts, initial encounter (principal); E43 Unspecified severe protein-calorie malnutrition; E88.09 Other disorders of plasma-protein metabolism, not elsewhere classified; L03.311 Cellulitis of abdominal wall; F84.0 Autistic disorder; K31.84 Gastroparesis; Z20.822 Contact with and (suspected) exposure to COVID-19; Y83.2 Surgical operation with anastomosis, bypass or graft as the cause of abnormal reaction of the patient, or of later complication, without mention of misadventure at the time of the procedure; Z43.1 Encounter for attention to gastrostomy; Q90.9 Down syndrome, unspecified; Z68.1 Body mass index [BMI] 19.9 or less, adult; Y92.89 Other specified places as the place of occurrence of the external cause
CPT/HCPCS: 36415; 74018; 80053; 85025; 85610; 87081; 87426; G0378; J0690; J2405; J2704; J3490

== ENCOUNTER 2024-04-09 15:48 | Inpatient (IN) | payer MEDICARE, MEDICAID ==
[~2024-04-09] VITALS: Ht 152.4 cm; Wt 63.2 kg
[2024-04-09] MEDS: SODIUM CHLORIDE 0.9% 1,000 ML IV ONE (16:53)
[2024-04-09] MEDS: ONDANSETRON HCL 4 MG/2 ML VIAL IV ONE (16:54)
[2024-04-09] MEDS: MORPHINE SULFATE 4 MG/ML SYR/VIAL IV ONE ×2 (16:55→20:36)
[2024-04-09 17:00] LABS: Basophils # (auto) 0.1 10 ^3/uL (0-0.2); Eosinophils # (auto) 0.1 10 ^3/uL (0-0.8); Eosinophils % (auto) 2.6 % (0.0-7.0); Lymphocytes # (auto) 1.9 10 ^3/uL (0.4-5.4); Mean Corpuscular Volume 103.1 fL (80.0-100.0); Monocytes # (auto) 0.3 10 ^3/uL (0-1.3); Neutrophils # (auto) 1.6 10 ^3/uL (1.6-8.6); Red Blood Cells 3.86 10^6/uL (4.0-5.20); Red Cell Distribution Width 13.1 % (11.8-14.3)
[2024-04-09 17:02] LABS: Basophils % (auto) 1.4 % (0.0-2.0); Hematocrit 39.8 % (36.0-46.0); Lymphocytes % (auto) 47.4 % (10.0-50.0); Mean Corpuscular Hemoglobin 36.4 pg (28.0-32.0); Mean Corpuscular Hgb Conc. 35.3 g/dL (32.0-36.0); Monocytes % (auto) 7.9 % (0.0-12.0); Neutrophils % (auto) 40.7 % (37.0-80.0); Nucleated Red Blood Cells % 0.1 %; Platelet Count (auto) 209 10^3/uL (140-450)
[2024-04-09 17:40] LABS: Urine Bacteria FEW /hpf (None Seen); Urine Blood Negative /uL (Negative); Urine Clarity Clear (Clear); Urine Color Light-Yellow (Yellow); Urine Protein, UAD Negative (Negative); Urine Specific Gravity 1.009 (1.001-1.035); Urine Urobilinogen Normal (Negative); Urine WBC 4 /hpf (0 - 5)
[2024-04-09 18:00] VITALS: PULSE 94; RESP 16; O2SAT 96
[2024-04-09] MEDS: KETOROLAC TROMETH 30 MG/ML 1ML VIAL IV ONE (19:17)
[2024-04-09] MEDS: FAMOTIDINE (10MG/ML) 2ML VL IV ONE (19:17)
[2024-04-09 20:14] VITALS: PULSE 87; RESP 12; O2SAT 94
[2024-04-09 21:56] LABS: Alanine Aminotransferase 15 U/L (7-40); Albumin 3.6 g/dL (3.2-4.8); Alkaline Phosphatase 61 U/L (46-116); Anion Gap 4 (5-15); Aspartate Aminotransferase 21 U/L (13-40); Bilirubin, Total 0.3 mg/dL (0.2-1.0); Blood Urea Nitrogen 16 mg/dL (9-23); Calcium 8.7 mg/dL (8.7-10.4); Carbon Dioxide 28 mmol/L (20-31); Chloride 110 mmol/L (98-107); Glucose 95 mg/dL (74-106); Lipase 66 U/L (12-53); Potassium 4.3 mmol/L (3.5-5.1); Sodium 142 mmol/L (136-145); Total Protein 5.8 g/dL (5.7-8.2)
[2024-04-10] MEDS: LACTATED RINGER'S 1,000 ML IV ONE (02:45)
[2024-04-10] MEDS: cefTRIAXone 1GM/50ML D5W 50 ML IV ONE (02:45)
[2024-04-10] MEDS: ONDANSETRON HCL 4 MG/2 ML VIAL IV ONE (02:45)
[2024-04-10 07:30] VITALS: PULSE 84; RESP 18; O2SAT 97
[2024-04-10] MEDS: LACTATED RINGER'S 1,000 ML IV SCH (07:46)
[2024-04-10] MEDS: MORPHINE SULFATE INJ 2 MG/ml SYRG IV PRN (09:58)
[2024-04-10 10:26] LABS: Basophils # (auto) 0 10 ^3/uL (0-0.2); Basophils % (auto) 0.8 % (0.0-2.0); Eosinophils # (auto) 0.1 10 ^3/uL (0-0.8); Eosinophils % (auto) 2.1 % (0.0-7.0); Hematocrit 45.7 % (36.0-46.0); Hemoglobin 15.4 g/dL (12.2-16.2); Lymphocytes # (auto) 1.6 10 ^3/uL (0.4-5.4); Lymphocytes % (auto) 37.1 % (10.0-50.0); Mean Corpuscular Hemoglobin 36.2 pg (28.0-32.0); Mean Corpuscular Hgb Conc. 33.6 g/dL (32.0-36.0); Mean Corpuscular Volume 107.8 fL (80.0-100.0); Monocytes # (auto) 0.4 10 ^3/uL (0-1.3); Monocytes % (auto) 9.4 % (0.0-12.0); Neutrophils # (auto) 2.2 10 ^3/uL (1.6-8.6); Neutrophils % (auto) 50.6 % (37.0-80.0); Nucleated Red Blood Cells % 0.1 %; Platelet Count (auto) 162 10^3/uL (140-450); Red Blood Cells 4.24 10^6/uL (4.0-5.20); Red Cell Distribution Width 13.2 % (11.8-14.3); White Blood Cell 4.4 10^3/uL (4.4-10.8)
[2024-04-10 10:34] LABS: Anion Gap 4 (5-15); Carbon Dioxide 26 mmol/L (20-31); Chloride 109 mmol/L (98-107); Potassium 3.9 mmol/L (3.5-5.1); Sodium 139 mmol/L (136-145)
[2024-04-10 10:35] LABS: Calcium 9.2 mg/dL (8.7-10.4)
[2024-04-10 10:39] LABS: Glucose 82 mg/dL (74-106)
[2024-04-10 10:40] LABS: Blood Urea Nitrogen 10 mg/dL (9-23); Lipase 72 U/L (12-53); Magnesium 2.3 mg/dL (1.6-2.6)
[2024-04-10 12:44] LABS: Amphetamine Screen, Urine Neg (NEGATIVE)
[2024-04-10 12:47] LABS: Barbiturate Scree,Urine Neg (NEGATIVE)
[2024-04-10 12:48] LABS: Benzodiazephine Screen, Urine Neg (NEGATIVE); Cannabinoid Screen, Urine Neg (NEGATIVE); Cocaine Screen, Urine Neg (NEGATIVE); Opiate Scree,Urine Neg (NEGATIVE); Phencyclidine Screen, Urine Neg (NEGATIVE)
[2024-04-10 12:49] VITALS: PULSE 66; RESP 18; O2SAT 97
[2024-04-10 13:00] VITALS: BP 98/68; PULSE 65; RESP 17; TEMP 98.5; O2SAT 97
[2024-04-10 16:30] VITALS: BP 118/80; PULSE 66; RESP 16; TEMP 97.6; O2SAT 99
[2024-04-10] MEDS: PANTOPRAZOLE 40 MG TAB PO ONE (17:26)
[2024-04-10] MEDS: ENOXAPARIN SOD 40 MG/0.4 ML SYRINGE SC ONE (17:26)
[2024-04-10 20:00] VITALS: PULSE 74
[2024-04-10] MEDS ORDERED: HAL5T PO (20:18)
[2024-04-10] MEDS ORDERED: TRAZ-181 PO (20:18)
[2024-04-10] MEDS ORDERED: LORA-1121 PO (20:25)
[2024-04-10] MEDS ORDERED: HYD25TP PR (20:25)
[2024-04-10] MEDS ORDERED: DOCU-265 PO (20:25)
[2024-04-10] MEDS ORDERED: ACET325T82 PO (20:25)
[2024-04-10] MEDS ORDERED: PANT40TA57 PO (20:25)
[2024-04-10] MEDS ORDERED: ASPI1TAB20 PO (20:25)
[2024-04-10] MEDS ORDERED: HYDR-3682 PO (20:25)
[2024-04-10] MEDS ORDERED: MULT-1072 OR (20:25)
[2024-04-10 21:00] VITALS: BP 104/71; PULSE 70; RESP 17; TEMP 97.1; O2SAT 95
[2024-04-10] MEDS: ONDANSETRON HCL 4 MG/2 ML VIAL IV PRN (22:08)
[2024-04-11] VITALS (8 sets, daily range): BP systolic 102–125; BP diastolic 55–85; PULSE 60–98; RESP 15–19; TEMP 97.9–98.6; O2SAT 95–99
[2024-04-11] MEDS ORDERED: TRAZ-227 PO (00:51)
[2024-04-11] MEDS ORDERED: LORA-1123 PO (00:51)
[2024-04-11] MEDS ORDERED: PANT40T PO (00:51)
[2024-04-11] MEDS: traZODone HCL 50 MG TAB PO ONE (01:43)
[2024-04-11] MEDS: PANTOPRAZOLE 40 MG TAB PO SCH (05:34)
[2024-04-11 07:46] LABS: Chloride 105 mmol/L (98-107); Potassium 3.9 mmol/L (3.5-5.1); Sodium 142 mmol/L (136-145)
[2024-04-11 07:47] LABS: Anion Gap 8 (5-15); Calcium 9.9 mg/dL (8.7-10.4); Carbon Dioxide 29 mmol/L (20-31)
[2024-04-11 07:52] LABS: BUN/Creatinine Ratio 13.2 (10.0-20.0); Blood Urea Nitrogen 12 mg/dL (9-23); Glucose 86 mg/dL (74-106)
[2024-04-11] MEDS: ENOXAPARIN SOD 40 MG/0.4 ML SYRINGE SC SCH (09:29)
[2024-04-11] MEDS ORDERED: LACTULOSE 20Gm/30ML SOLN PO PRN (11:30)
[2024-04-12 01:00] VITALS: BP 107/74; PULSE 79; RESP 18; TEMP 98.1; O2SAT 98
[2024-04-12 05:00] VITALS: BP 101/68; PULSE 50; RESP 18; TEMP 97.8; O2SAT 97
[2024-04-12 09:00] VITALS: TEMP 98.1
[2024-04-12 13:42] LABS: Basophils # (auto) 0.1 10 ^3/uL (0-0.2); Basophils % (auto) 1.4 % (0.0-2.0); Eosinophils # (auto) 0.1 10 ^3/uL (0-0.8); Hematocrit 46.7 % (36.0-46.0); Lymphocytes # (auto) 0.9 10 ^3/uL (0.4-5.4); Lymphocytes % (auto) 22.9 % (10.0-50.0); Mean Corpuscular Hemoglobin 35.6 pg (28.0-32.0); Mean Corpuscular Hgb Conc. 34.3 g/dL (32.0-36.0); Mean Corpuscular Volume 103.7 fL (80.0-100.0); Monocytes # (auto) 0.2 10 ^3/uL (0-1.3); Monocytes % (auto) 5.8 % (0.0-12.0); Neutrophils # (auto) 2.8 10 ^3/uL (1.6-8.6); Neutrophils % (auto) 67.9 % (37.0-80.0); Platelet Count (auto) 195 10^3/uL (140-450); White Blood Cell 4.1 10^3/uL (4.4-10.8)
[2024-04-12 13:47] LABS: Chloride 109 mmol/L (98-107); Potassium 3.6 mmol/L (3.5-5.1); Sodium 143 mmol/L (136-145)
[2024-04-12 13:48] LABS: Anion Gap 8 (5-15); Carbon Dioxide 26 mmol/L (20-31)
[2024-04-12 13:49] LABS: Calcium 10.1 mg/dL (8.7-10.4)
[2024-04-12 13:53] LABS: BUN/Creatinine Ratio 8.2 (10.0-20.0); Blood Urea Nitrogen 6 mg/dL (9-23); Glucose 90 mg/dL (74-106)
[2024-04-12 16:02] VITALS: TEMP 36.7
== END 2024-04-12 17:50 | disposition home or self-care (01) | DRG 694 ==
LOC: EDBD 15:48 → ER 15:51 → TELE 04-10 03:19 → TELE-WESTW 04-10 12:24 → WEST WING 04-10 23:05
PROVIDERS: ADMIT Internal Medicine; ATTEND Internal Medicine
DX: N20.0 Calculus of kidney (principal); R07.9 Chest pain, unspecified; D72.819 Decreased white blood cell count, unspecified; F41.9 Anxiety disorder, unspecified; K21.9 Gastro-esophageal reflux disease without esophagitis; Q90.9 Down syndrome, unspecified
CPT/HCPCS: 36415; 71045; 74176; 80048; 80053; 80307; 81001; 82306; 82607; 83036; 83605; 83690; 83735; 83880; 84484; 84702; 85025; 93005; 93306; 97163; G0378; J1885; J2405; J3490